=== PATIENT | female | born 1975 | race Caucasian/White ===

== ENCOUNTER → 2020-09-27 11:27 | Outpatient (BNVA) | payer OTHER, SELFPAY | PROVIDERS: Family Provider Family Medicine; Visit Provider Nurse Practitioner Family | DX: Z20.822 Contact with and (suspected) exposure to COVID-19 (principal); U07.1 COVID-19 | CPT/HCPCS: 87635 ==

== ENCOUNTER 2021-11-10 16:58 | Observation (INO) | payer OTHER, SELFPAY ==
[2021-11-10] VITALS (7 sets, daily range): BP systolic 107–131; BP diastolic 58–75; PULSE 107–126; RESP 14–22; TEMP 37.1–39.1; O2SAT 98–100; BMI 23.5
[2021-11-10 18:40] LABS: Basophils # 0.1 10^3/uL (0.0-0.1); Basophils % 0.3 %; Eosinophils % 0.1 %; Hematocrit 37.4 % (37.0-47.0); Hemoglobin 12.6 g/dL (11.5-15.3); Lymphocytes # 0.9 10^3/uL (0.8-4.8); Lymphocytes % 6.4 %; Mean Corpuscular HGB Conc 33.7 g/dL (30.0-36.0); Mean Corpuscular Hemoglobin 28.3 pg (28.0-34.0); Mean Corpuscular Volume 83.9 fl (81-99); Mean Platelet Volume 10.1 fL (7.4-10.4); Monocytes # 0.6 10^3/uL (0.2-0.9); Monocytes % 4.1 %; Neutrophils # 12.98 10^3/uL (1.8-7.7); Neutrophils % 88.8 %; Nucleated Red Blood Cells % 0 %; Platelet Count 273 10^3/cmm (130-400); Red Blood Count 4.46 10^6/uL (4.1-5.3); Red Cell Distribution Width 13.2 % (12.1-15.1); White Blood Count 14.6 10^3/uL (4.0-10.0)
[2021-11-10] MEDS: sodium chloride 0.9% 1,000 ML 999 ML IV (18:59)
[2021-11-10] MEDS: ondansetron 2 mg/ML SDV 2 mL 4 MG IVP (19:00)
[2021-11-10] MEDS: morphine 4 mg/mL SDV 1 mL IVP (19:00)
[2021-11-10 19:10] LABS: Alanine Aminotransferase 44 U/L (0-33); Alkaline Phosphatase 89 IU/L (35-105); Anion Gap 18.6 (5-19); Aspartate Amino Transferase 30 U/L (0-32); Blood Urea Nitrogen 11 mg/dL (6-20); Calcium 9.8 mg/dL (8.5-10.5); Carbon Dioxide 24 mmol/L (22-29); Chloride 98 mmol/L (98-107); Globulin 2.8 g/dL (1.3-4.6); Glomerular Filtration Rate 108.6 mL/min (90-130); Glucose 118 mg/dL (65-115); Lipase 13 U/L (13-60); Osmolality Calculated 284 mOsm/kg (285-295); Potassium 3.6 mmol/L (3.5-5.1); Sodium 137 mmol/L (136-145); Total Bilirubin 0.5 mg/dL (0.15-1.2); Total Protein 7.8 g/dL (6.6-8.7)
[2021-11-10 19:23] LABS: HCG, Serum Qual Negative (Negative)
--- NOTE | 2021-11-10 19:46 | CTR_ITS ---
PROCEDURE INFORMATION: Exam: CT Abdomen And Pelvis Without Contrast Exam date and time: 11/10/2021 8:57 PM Age: 46 years old Clinical indication: Abdominal pain; Generalized; Prior surgery; Surgery date: 6+ months; Surgery type: Olga; Additional info: Abd pain, fever TECHNIQUE: Imaging protocol: Computed tomography of the abdomen and pelvis without contrast. Radiation optimization: All CT scans at this facility use at least one of these dose optimization techniques: automated exposure control; mA and/or kV adjustment per patient size (includes targeted exams where dose is matched to clinical indication); or iterative reconstruction. COMPARISON: CT abdomen pelvis w con* [id number] 02/26/2017 10:01 AM RADIATION DOSE METRICS: Total DLP (mGy-cm): 906.46 FINDINGS: Lungs: The lung bases are clear. No effusion Liver: Normal. No mass. Gallbladder and bile ducts: There has been a cholecystectomy. Pancreas: Normal. No ductal dilation. Spleen: Normal. No splenomegaly. Adrenal glands: Normal. No mass. Kidneys and ureters: Normal. No hydronephrosis. Stomach and bowel: Mild amount of formed stool in the colon. Appendix: The appendix is mildly enlarged, measuring 13. mm , with periappendiceal fat stranding and an appendicolith. No fluid collection.. Intraperitoneal space: Tiny amount of free fluid in the pelvis, normal for age. Vasculature: Unremarkable. No abdominal aortic aneurysm. Lymph nodes: Unremarkable. No enlarged lymph nodes. Urinary bladder: Unremarkable as visualized. Reproductive: Unremarkable as visualized. Bones/joints: Unremarkable. No acute fracture. Soft tissues: Unremarkable. CT/CT abdomen pelvis con [id number] IMPRESSION: 1. Mild constipation. 2. Acute appendicitis with appendicolith.
--- NOTE | 2021-11-10 19:51 | ED_ITS ---
HPI - Abdominal Pain General: Chief Complaint: Abdominal Pain Stated Complaint: Abd Pain Time Seen by Provider: 11/10/21 19:51 History of Present Illness: 46-year-old female comes in today with body aches, chills, decreased oral intake since Wednesday. Patient reports abdominal pain. Patient appears in moderate pain at rest. Patient appears unwell but not toxic. Patient has had her gallbladder removed but no other abdominal surgeries. Patient takes some nortriptyline and omeprazole. Patient was treated 1 year ago for a tickborne illness. Denies any recent tick bites or exposure to COVID-19. Associated Symptoms: Reports chills and nausea; Denies constipation, diarrhea and vomiting Review of Systems General: Reports: 10 or more systems reviewed and unremarkable except in HPI and below Const: Reports: chills and body aches Eyes: Denies: change in vision ENMT: Denies: throat pain Card: Denies: chest pain Resp: Denies: dyspnea GI: Reports: abdominal pain and nausea; Denies: vomiting, diarrhea or constipation : Reports: difficulty voiding Musc: Reports: other (Muscle pain) Skin/Breast: Denies: rash PFSH ED PFSH: Social History (Updated 10/13/20 @ 11:43 by Joycelyn Martínez LPN) Smoking and tobacco status: never smoked Physical Exam Const: COMMON NORMALS: alert HENMT: COMMON NORMALS: normocephalic HEAD & SCALP: normocephalic Neck/C-Spine: GENERAL: Yes normal visual inspection Lymph: LYMPHATIC: no lymphadenopathy noted Chest: COMMONS NORMALS: normal inspection of the chest and normal palpation of the breasts BREAST/AXILLA PALPATION: Yes normal palpation of the breasts Resp: COMMON NORMALS: normal respiratory effort and clear to auscultation bilaterally AUSCULTATION: clear to auscultation bilaterally Cardio: COMMON NORMALS: regular rhythm RATE: tachycardic RHYTHM: regular rhythm GI: AUSCULTATION: Yes Hypoactive bowel sounds present PALPATION: Yes Firmness to palpation present (GI) and Yes Tenderness to palpation present (GI) (Generalized) : COMMON NORMALS: Yes no CVA tenderness BLADDER/KIDNEY EXAM: Yes no CVA tenderness Back/Pelvis: COMMON NORMALS: no CVA tenderness Extremity: COMMON NORMALS: normal to inspection Neuro: SENSORIUM/ORIENTATION: Yes alert Skin: COMMON NORMALS: no rashes or lesions noted GENERAL SKIN EXAM: no rashes or lesions noted Course ED course: 2229. CT scan ruled acute appendicitis with an appendicolith. Reviewed exam with Dr. Mckeon who recommended we talk to the general surgeon Dr. Wakefield, surgeon. Dr. Wakefield agreed to admit patient for surgery in the morning for an acute appendicitis. Vital Signs: Vital signs: Vital Signs Temperature 98.8 F 11/10/21 22:00 Pulse Rate 114 H 11/10/21 21:30 Respiratory Rate 21 H 11/10/21 21:30 Blood Pressure 107/64 11/10/21 22:00 Pulse Oximetry 99 11/10/21 22:00 MDM - Abdominal Pain Medical Decision Making 46-year-old female comes in today with complaints of right lower quadrant abdominal pain, poor oral intake, and fever on and off since Wednesday morning. Exam notes umbilical tenderness with right lower quadrant rebound pain. Positive psoas sign. Vital signs note a elevated pulse of 126 and a temperature of 102. Differential diagnosis includes not limited to appendicitis, bowel obstruction, UTI, viral syndrome. CBC had a white count of 14,000, CMP was unremarkable except for some mild elevation in ALT at 44. Urinalysis was unremarkable. CT of the abdomen pelvis noted an acute appendicitis with an a ppendicolith. I reviewed this with Dr. Mckeon who recommended general surgery consult. I talked with Dr. Wakefield, general surgeon who agreed to plan for admission and appendectomy in the morning. Patient agreed with plan of care. Lab Data : 11/10/21 18:27 11/10/21 18:27 Labs/Radiology: Radiology Impressions Abdomen/Pelvis CT 11/10/21 19:46 IMPRESSION: 1. Mild constipation. 2. Acute appendicitis with appendicolith. ADDENDUM: 11/10/218 THIS REPORT CONTAINS FINDINGS THAT MAY BE CRITICAL TO PATIENT CARE. The findings were verbally communicated by me to HOLLAND MORENO via telephone conference at 10:26 PM CDT on 11/10/2021. The findings were acknowledged and understood. Laboratory Results WBC 14.6 10^3/uL (4.0-10.0) H 11/10/21 18:27 RBC 4.46 10^6/uL (4.1-5.3) 11/10/21 18:27 Hgb 12.6 g/dL (11.5-15.3) 11/10/21 18: Hct 37.4 % (37.0-47.0) 11/10/21: MCV 83.9 fl (81-99) 11/10/21: MCH 28.3 pg (28.0-34.0) 11/10/21: MCHC 33.7 g/dL (30.0-36.0) 11/10/21 RDW 13.2 % (12.1-15.1) 11/10/21 Plt Count 273 10^3/cmm (130-400) 11/10/21 MPV 10.1 fL (7.4-10.4) 11/10/21 Neut % (Auto) 88.8 % 11/10/21 Lymph % (Auto) 6.4 % 11/10/21: [place] % (Auto) 4.1 % 11/10/21: Eos % (Auto) 0.1 % 11/10/21 Baso % (Auto) 0.3 % 11/10/21 Neut # (Auto) 12.98 10^3/uL (1.8-7.7) H 11/10/21 Lymph # (Auto) 0.9 10^3/uL (0.8-4.8) 11/10/21 [place] # (Auto) 0.6 10^3/uL (0.2-0.9) 11/10/21 Eos # (Auto) 0.0 10^3/uL (0.0-0.8) 11/10/21 Baso # (Auto) 0.1 10^3/uL (0.0-0.1) 11/10/21 Nucleated RBC % (auto) 0 % 11/10/21 Nucleated RBCs # 0.0 /100WBC 11/10/21 18: Sodium 137 mmol/L (136-145) 11/10/21: Potassium 3.6 mmol/L (3.5-5.1) 11/10/21: Chloride 98 mmol/L (98-107) 07/11/22 18:27 Carbon Dioxide 24 mmol/L (22-29) 11/10/21 18:27 Anion Gap 18.6 (5-19) 11/10/21 18: BUN 11 mg/dL (6-20) 11/10/21 18: Creatinine 0.6 mg/dL (0.5-0.9) 11/10/21 18:27 GFR Calculation 108.6 mL/min (90-130) 11/10/21 18: Glucose 118 mg/dL (65-115) H 11/10/21 18:27 Calculated Osmolality 284 mOsm/kg (285-295) L 11/10/21 18: Lactic Acid 1.0 mmol/L (0.5-2.2) 11/10/21 18: Calcium 9.8 mg/dL (8.5-10.5) 11/10/21 18: Total Bilirubin 0.5 mg/dL (0.15-1.2) 11/10/21 18: AST 30 U/L (0-32) 11/10/21 18: ALT 44 U/L (0-33) H 11/10/21 18:27 Alkaline Phosphatase 89 IU/L (35-105) 11/10/21 18: Total Protein 7.8 g/dL (6.6-8.7) 11/10/21 18: Albumin 5.0 g/dL (3.5-5.2) 11/10/21 18: Globulin 2.8 g/dL (1.3-4.6) 11/10/21 18: Lipase 13 U/L (13-60) 11/10/21 18:27 HCG, Qual Negative (Negative) 11/10/21 18:27 Urine Color Yellow (Yellow) 11/10/21 21:50 Urine Appearance Clear (CLEAR) 11/10/21 21:50 Urine pH 5 (5-7) 11/10/21 21:50 Ur Specific [place] 1.015 (1.005-1.030) 11/10/21 21:50 Urine Protein Trace (Negative) 11/10/21 21:50 Urine Glucose (UA) Norm (Normal) 11/10/21 21:50 Urine Ketones 2+ (Negative) H 11/10/21 21:50 Urine Blood Neg (Negative) 11/10/21 21:50 Urine Nitrate Negative (Negative) 11/10/21 21:50 Urine Bilirubin 1+ (Negative) H 11/10/21 21:50 Urine Urobilinogen 1 mg/dL (Negative) H 11/10/21 21:50 Ur Leukocyte Esterase Negative (Negative) 11/10/21 21:50 Urine RBC 5-10 /hpf (0-2) H 11/10/21 21:50 Urine WBC 5-10 /hpf (0-5) H 11/10/21 21:50 Ur Squamous Epith Cells 0-4 /hpf (0-5) H 11/10/21 21:50 Amorphous Sediment Not Reportable 11/10/21 21:50 Urine Bacteria 2+ /hpf (NONE) H 11/10/21 21:50 Urine Mucus 1+ /hpf 11/10/21 21:50 Discharge Plan Discharge Condition: Stable Prescriptions: No Action omeprazole 20 mg tablet,delayed release (DR/EC) 20 mg PO DAILY 0RF nortriptyline 50 mg capsule 50 mg PO BEDTIME 0RF acetaminophen [Tylenol] 325 mg tablet 325 mg PO QID PRN (Reason: Pain) 0RF sumatriptan succinate 50 mg tablet 50 mg PO DAILY PRN (Reason: Migraine Headache) 0RF Advil 200 mg Tablet 200 mg PO Q6H PRN (Reason: Pain) 0RF magnesium 30 mg Tablet 30 mg PO DAILY 0RF buspirone 15 mg tablet 7.5 mg PO BID 0RF bupropion HCl 150 mg tablet extended release 24 hr 150 mg PO DAILY 0RF Multi For Her 18 mg iron-600 mcg-40 mcg Capsule 1 tab-cap PO DAILY 0RF Referrals: Olivia Benitez MD [Primary Care Provider] - Coding Level of Care Code ED Certified [place] Administrator for Chg Fwd Exam Comprehensive
[2021-11-10] MEDS: lactated ringers 1,000 ML 999 ML IV (20:13)
[2021-11-10] MEDS: ketorolac 30 mg/mL INJ 15 MG IVP (20:13)
[2021-11-10] MEDS: acetaminophen 1,000 MG/100 ML PIGGYBACK 400 MG IV (21:35)
[2021-11-10 22:13] LABS: Add Urine Culture? Yes; Add Urine Microscopic? YES; Bacteria Urine 2+ /hpf; Bilirubin Urine 1+ (Negative); Blood Urine Neg (Negative); Glucose Urine UA Norm (Normal); Ketones Urine 2+ (Negative); Leukocyte Esterase Urine Negative (Negative); Mucus Urine 1+ /hpf; Nitrate Urine Negative (Negative); Protein Urine Trace (Negative); Specific Gravity, Urine 1.015 (1.005-1.030); Squamous Epithelial Cell Urine 0-4 /hpf (0-5); Urine Appearance Clear (CLEAR); Urine Color Yellow (Yellow); Urobilinogen Urine 1 mg/dL (Negative); pH Urine 5 (5-7)
[2021-11-10] MEDS: lactated ringers 1,000 ML 125 ML IV (23:11)
[2021-11-10] MEDS: piperacillin-tazobactam 3.375 GM in sodium chloride 0.9% (plus) 50 ML IV (23:11)
[2021-11-11] VITALS (14 sets, daily range): BP systolic 95–124; BP diastolic 61–73; PULSE 92–114; RESP 16–20; TEMP 36.8–38.4; O2SAT 93–99
[2021-11-11] MEDS: ondansetron 2 mg/ML SDV 2 mL 4 MG IVP (00:59)
[2021-11-11] MEDS: morphine 4 mg/mL SDV 1 mL 2 MG IVP ×2 (00:59→23:52)
[2021-11-11] MEDS: sodium chloride 0.9% 1,000 ML 125 ML IV ×2 (00:59→17:43)
--- NOTE | 2021-11-11 05:51 | PM.HP ---
Providers/Chief Complaint Admitting Physician: Francisco Javier Davis MD Primary Care Provider: Olivia Wilson MD Chief Complaint: Abd Pain History of Present Illness Ms. Letty Tan is a pleasant 46 year old female presented to the emergency department with generalized aches chills and decreased oral intake since last Wednesday. Patient complaining of abdominal pain. Work-up in the ER showed WBC count of 14.7Hemoglobin 12.6, platelet counts 273, serum creatinine 0.6. CT of the abdomen and pelvis; 1. Mild constipation. 2. Acute appendicitis with appendicolith. General surgery was consulted for further management Patient started her pain last Wednesday all over her belly and started shifting towards the right lower quadrant. Associated with nausea and chills. As her symptoms got worse presented to the ER for further evaluation. Patient is aware that she is chronically constipated. Review of Systems General: Reports: 10 or more systems reviewed and unremarkable except in HPI and below Medications/Allergies Home Medications Medication Instructions Recorded Confirmed Last Taken Type acetaminophen 325 mg tablet 325 mg PO QID PRN 09/27/20 11/10/21 11/10/21 History (Tylenol) nortriptyline 50 mg capsule 50 mg PO BEDTIME 09/27/20 11/10/21 11/10/21 History omeprazole 20 mg tablet,delayed 20 mg PO DAILY 09/27/20 11/10/21 11/10/21 History release bupropion HCl 150 mg 24 hr tablet, 150 mg PO DAILY 11/10/21 11/10/21 11/10/21 History extended release buspirone 15 mg tablet 7.5 mg PO BID 11/10/21 11/10/21 11/10/21 History ibuprofen 200 mg tablet (Advil) 200 mg PO Q6H PRN 11/10/21 11/10/21 Unknown History magnesium 30 mg tablet 30 mg PO DAILY 11/10/21 11/10/21 11/10/21 History [id number] fumarate 18 1 tab-cap PO DAILY 11/10/21 11/10/21 11/10/21 History mg-FA 600 mcg-vit K 40 mcg capsule (Multi For Her) sumatriptan succinate 50 mg tablet 50 mg PO DAILY PRN 11/10/21 11/10/21 Unknown History Allergies Allergy/AdvReac Type Severity Reaction Status Date / Time zolpidem [From Ramona] Allergy ADR-Migrain Verified 11/11/21 05:54 e PFSH Acute PFSH: Social History Smoking and tobacco status: never smoked Vitals/I&O/Wt Last Vital Signs Temp 98.3 F 11/11/21 02:08 Pulse 92 11/11/21 02:08 Resp 18 11/11/21 02:08 BP 95/61 11/11/21 02:08 Pulse Ox 96 11/11/21 02:08 11/10/21 11/10/21 11/11/21 14:59 22:59 06:59 Intake Total 1100 / 1100 1256.25 / 2356.25 Balance 1100 / 1100 1256.25 / 2356.25 Weight last 48 hrs Weight 137 lb Weight 137 lb Physical Exam Const: COMMON NORMALS: no acute distress and patient oriented x3 GENERAL APPEARANCE: cooperative ORIENTATION/CONSCIOUSNESS: Yes awake, Yes oriented to person, Yes oriented to place and Yes oriented to time HENMT: COMMON NORMALS: normocephalic HEAD & SCALP: normocephalic Eye: COMMON NORMALS: Equal, round and reactive pupils present and no scleral icterus PUPIL: Yes Equal, round and reactive pupils present Lymph: LYMPHATIC: no lymphadenopathy noted Chest: COMMONS NORMALS: normal inspection of the chest Resp: COMMON NORMALS: normal respiratory effort and clear to auscultation bilaterally AUSCULTATION: clear to auscultation bilaterally Cardio: COMMON NORMALS: S1 normal heart sound present and S2 normal heart sound present; negative for No murmurs present (Cardio) HEART SOUNDS: S1 normal heart sound present and S2 normal heart sound present GI: COMMON NORMALS: Soft to palpation; negative for No hepatosplenomegaly present INSPECTION: Yes normal to inspection PALPATION: Yes Soft to palpation, No Firmness to palpation present (GI), Yes Tenderness to palpation present (GI) Details: LLQ, RLQ and other (Suprapubic tenderness ), No Guarding due to palpation present (GI), No Rigid due to palpation and No No hepatosplenomegaly present GI image (female): 1. Maximal tenderness and localized guarding localized at McBurney's point. Physical exam was in the presence of nursing staff Khadijah Neuro: COMMON NORMALS: patient oriented x3 SENSORIUM/ORIENTATION: Yes oriented to person, Yes oriented to place and Yes oriented to time Psych: COMMON NORMALS: mental status grossly normal Skin: COMMON NORMALS: no rashes or lesions noted GENERAL SKIN EXAM: no rashes or lesions noted Data : 11/10/21 18:27 11/10/21 18:27 Micro: Microbiology 11/10/21 18:27 Blood Culture - Preliminary Blood SPECIMEN COLLECTED 11/10/21 18:27 Blood Culture - Preliminary Blood SPECIMEN COLLECTED A&P Assessment and plan (1) Acute appendicitis: After thorough history physical examination and reviewing the chart and images with my personal interpretion, I counseled the patient for laparoscopic appendectomy possible open.Indications, risks, benefits and alternatives were all discussed with the patient and did agree to proceed. Rationale was carefully and clearly discussed with the patient.Appropriate informed consent have been reviewed and signed Status: Acute Attestations Medical Necessity Statement*: Observation status for perioperative care Coding Level of Care Code Acute Green Ware Caster for [facility] Fwd Exam Comprehensive Diagnoses Acute appendicitis K35.80
[2021-11-11] MEDS: piperacillin-tazobactam 3.375 GM in sodium chloride 0.9% (plus) 50 ML IV ×3 (06:09→23:17)
[2021-11-11] MEDS: acetaminophen 325 mg Tablet 650 MG PO (06:28)
--- NOTE | 2021-11-11 08:30 | P.ANESASSM_ITS ---
Pre-Anesthetic Assessment Height/Weight: Height 1.63 m Weight 62.142 kg Temp Pulse Resp BP Pulse Ox 101.2 F H 114 H 20 H 111/70 98 11/11/21 07:52 11/11/21 07:52 11/11/21 07:52 11/11/21 07:52 11/11/21 07:52 Preop Diagnosis: Acute appendicitis Operation Date: 11/11/21 09:15 Proposed Procedures p Laparoscopic Appendectomy(Not Applicable) - Francisco Javier Davis MD Familial anesthetic complications: none Was Beta Chai taken within 24 hours: N/A Was Clonidine taken within 24 hours: N/A Last intake: Intake Last Liquid Date 11/11/21 Last Liquid Time 00:00 Last Solid Date 11/11/21 Last Solid Time 00:00 Social No alcohol and No tobacco Exam alert, oriented x 3, clear to auscultation bilaterally and regular rate & rhythm Airway Submandibular: within normal limits Cervical ROM: within normal limits Mallampati: Class II Dentition: full GI Gastroesophageal Reflux Disease Neuropsych Anxiety and Depression Anesthetic Plan ASA status: 2 Anesthesia: General Medications/Allergies Home Medications Medication Instructions Recorded Confirmed Last Taken Type acetaminophen 325 mg tablet 325 mg PO QID PRN 09/27/20 11/10/21 11/10/21 History (Tylenol) nortriptyline 50 mg capsule 50 mg PO BEDTIME 09/27/20 11/10/21 11/10/21 History omeprazole 20 mg tablet,delayed 20 mg PO DAILY 09/27/20 11/10/21 11/10/21 History release bupropion HCl 150 mg 24 hr tablet, 150 mg PO DAILY 11/10/21 11/10/21 11/10/21 History extended release buspirone 15 mg tablet 7.5 mg PO BID 11/10/21 11/10/21 11/10/21 History ibuprofen 200 mg tablet (Advil) 200 mg PO Q6H PRN 11/10/21 11/10/21 Unknown History magnesium 30 mg tablet 30 mg PO DAILY 11/10/21 11/10/21 11/10/21 History [id number]-doq-uxlj fumarate 18 1 tab-cap PO DAILY 11/10/21 11/10/21 11/10/21 History mg-FA 600 mcg-vit K 40 mcg capsule (Multi For Her) sumatriptan succinate 50 mg tablet 50 mg PO DAILY PRN 11/10/21 11/10/21 Unknown History Allergies Allergy/AdvReac Type Severity Reaction Status Date / Time zolpidem [From Ambien] Allergy ADR-Migrain Verified 11/11/21 05:54 e Current Medications Generic Name Dose Route Start Last Admin Trade Name Freq PRN Reason Stop Dose Admin Piperacillin Sod/Tazobactam 50 mls @ 12.5 mls/hr 11/10/21 23:00 11/11/21 06:09 Sod 3.375 gm/ Sodium Chloride IV 12.5 mls/hr Q8H JEAN Administration Protocol Sodium Chloride 1,000 mls @ 125 mls/hr 11/11/21 00:15 11/11/21 00:59 Sodium Chloride 0.9% IV 125 mls/hr .Q8H JEAN Administration Morphine Sulfate 2 mg 11/11/21 00:09 11/11/21 00:59 Morphine 4 Mg/Ml Sdv 1 Ml IVP 2 mg Q1H PRN Administration SEVERE PAIN Ondansetron HCl 4 mg 11/11/21 00:09 11/11/21 00:59 Ondansetron 2 Mg/Ml Sdv 2 Ml IVP 4 mg Q6H PRN Administration NAUSEA AND VOMITING PFSH Anesthesia Social History Smoking and tobacco status: never smoked Data Anesthesia : 11/10/21 18:27 11/10/21 18:27 Short CBC 11/10/21 Range/Units 18:27 WBC 14.6 H (4.0-10.0) 10^3/uL Hgb 12.6 (11.5-15.3) g/dL Hct 37.4 (37.0-47.0) % MCV 83.9 (81-99) fl Plt Count 273 (130-400) 10^3/cmm Neut % (Auto) 88.8 % Neut # (Auto) 12.98 H (1.8-7.7) 10^3/uL BMP 11/10/21 18:27 Sodium 137 Potassium 3.6 Chloride 98 Carbon Dioxide 24 BUN 11 Creatinine 0.6 Glucose 118 H Calcium 9.8 Liver Function 11/10/21 Range/Units 18:27 Total Bilirubin 0.5 (0.15-1.2) mg/dL AST 30 (0-32) U/L ALT 44 H (0-33) U/L Alkaline Phosphatase 89 (35-105) IU/L Albumin 5.0 (3.5-5.2) g/dL Urine 11/10/21 Range/Units 21:50 Urine Color Yellow (Yellow) Urine Appearance Clear (CLEAR) Urine pH 5 (5-7) Ur Specific [place] 1.015 (1.005-1.030) Urine Protein Trace (Negative) Urine Glucose (UA) Norm (Normal) Urine Ketones 2+ H (Negative) Urine Nitrate Negative (Negative) Urine Bilirubin 1+ H (Negative) Ur Leukocyte Esterase Negative (Negative) Urine RBC 5-10 H (0-2) /hpf Urine WBC 5-10 H (0-5) /hpf Microbiology 11/10/21 18:27 Blood Culture - Preliminary Blood SPECIMEN COLLECTED 11/10/21 18:27 Blood Culture - Preliminary Blood SPECIMEN COLLECTED Cardiac Studies: No Data to Display
[2021-11-11] MEDS: lidocaine 2% INJ 20 mL INJECTION (08:57)
--- NOTE | 2021-11-11 09:40 | PM.OP ---
Operative Report Date of procedure: November 11, 2021 Pre-op diagnosis: Preop Diagnosis Acute appendicitis Post-op diagnosis: Acute appendicitis with perforation and omental encasing Procedure done: Laparoscopic appendectomy and peritoneal lavage Specimens removed/disposition: Appendix Surgeon: Francisco Javier Davis MD New Car Make Ready Mechanic: Surgical domenic Martin Circulating nurse Lauren Anesthesia: General (FAHEEM Sandoval) Estimated blood loss (mL): 20 IV fluids (mL): 900 Procedure: Patient after being identified in the holding area and asked to void urine, and informed consent per chart ,patient was then taken back to the OR placed in supine position got intubated by anesthesia left arm was tucked tucked ,Timeout was done verifying the patient's name/date of /planned procedure and destination after the procedure, all were in agreement., preoperative antibiotics administered per protocol. prep and drape of the abdomen was done under the usual sterile technique. Started by longitudinal skin incision supraumbilical using a Harrell trocar technique safe entry to the abdominal cavity was achieved verified by using 10 mm zero degree laparoscopy, switched to a 30? scope under direct visualization a suprapubic 5 mm trocar was inserted followed by another 5 mm trocar inserted in the left lower quadrant, I was able to position the patient in an T Hannon and left side down. Noticed omental encasing of the right lower quadrant for an inflamed appendix, after adhesions were taken down by blunt dissection revealing a perforated appendicitis towards the portion of the appendiceal body, with fibrinous exudates. Continued dissection of the prececal acutely inflamed appendix there was some adhesions towards the lateral pelvic wall that was taken down by sharp and blunt dissection, attention was deviated to the healthy base of the appendix where I had to switch the camera to 5 mm 30? scope got introduced through the left lower quadrant and through the Harrell trocar under direct visualization a GI stapler 45 mm blue load was applied at the healthy part of the base of the appendix, and an Endoloop PDS was applied onto the mesoappendix for control , the appendix was then retrieved in an Endo Catch bag, final survey was done of the abdomen and pelvis , 2 L of warm saline used for irrigation followed by suction was obtained, were mercury fluid like in the pelvis due to reaction from the inflamed appendix. Multiple 5 mm clips were applied onto the mesoappendix as well as the appendectomy staple line and a right lateral pelvic wall for minimal oozing. Final look laparoscopy was done showing no other abnormalities or injuries, all trocars were taken out under direct visualization after the supraumblical trocar site was closed by #1. Sutures under direct vision using fascial closure device ,followed by skin closure using skin sky of all trocar site incisions. infiltration of local lidocaine 2% was done to all incision sites.Dry dressing was applied.Count was completed at the end of the procedure for [place] , sponges and instruments Patient tolerated the procedure well and was transferred to the recovery area after extubation. I was present for the whole entire procedure
--- NOTE | 2021-11-11 10:00 | SUR.PHASEI ---
0947 PT AWAKES TO VOICE, VERBALLY DENIES PAON AND NAUSEA, MONITOR ST WITH NO ECTOPY NOTED, IV TO RT AC 20 WITH NS 200 AT KVO RATE PER GRAVITY. ABDOMEN SOFT WITH 3 SITES WITH BANDAIDS D/I BILAT SCDS ON AND WORKING. 0955 PT SATS 93% PT PLACED ON 3LNC TO KEEP SATS OVER 94% PT AWAKE ALERT TAKING OCC ICE CHIPS COUGHS TO COMMAND. MONITOR UNCHANGED.
--- NOTE | 2021-11-11 10:28 | SUR.PHASEI ---
ABOMEN REMAINS SOFT , BANDAIDS D/I FAMILY UP DATED AND WILL WAIT IN PT ROOM, PT REPORT CALLED AND PT TO FLOOR PER BED WITH RN.
[2021-11-11] MEDS: HYDROcodone-acetaminophen 5-325 mg Tablet 1 TAB PO ×2 (15:04→21:21)
--- NOTE | 2021-11-11 15:38 | ANE.PACU2 ---
Inpatient post-anesthesia follow up: Airway intact: Yes Vital signs: Temperature 98.8 F Pulse Rate 101 Respiratory Rate 19 Blood Pressure 113/67 Pulse Oximetry 97 Oxygen Delivery Me thod Nasal Cannula Oxygen Flow Rate 3 Fraction of Inspir ed Oxygen Hydration adequate: Yes Nausea and vomiting: No Pain level: 2 Mental status: Baseline
[2021-11-11] MEDS: cetylpyridinium Lozenge 1 EACH MUCOUS MEM (22:43)
[2021-11-11] MEDS: guaiFENesin 100 mg/5 mL UDC 10 mL 200 MG PO (22:43)
[2021-11-12] VITALS: BP 107/70; PULSE 97; RESP 18; TEMP 36.7; O2SAT 97
[2021-11-12] MEDS: sodium chloride 0.9% 1,000 ML 125 ML IV ×3 (03:20→20:10)
[2021-11-12 04:00] VITALS: BP 100/62; PULSE 96; RESP 17; TEMP 36.9; O2SAT 96
[2021-11-12] MEDS: piperacillin-tazobactam 3.375 GM in sodium chloride 0.9% (plus) 50 ML IV ×3 (06:41→23:53)
[2021-11-12 08:02] LABS: Basophils % 0.3 %; Eosinophils % 0.4 %; Hematocrit 26.5 % (37.0-47.0); Hemoglobin 8.7 g/dL (11.5-15.3); Lymphocytes # 1.5 10^3/uL (0.8-4.8); Lymphocytes % 14.6 %; Mean Corpuscular HGB Conc 32.8 g/dL (30.0-36.0); Mean Corpuscular Volume 85.2 fl (81-99); Monocytes # 0.7 10^3/uL (0.2-0.9); Monocytes % 6.3 %; Neutrophils # 8.26 10^3/uL (1.8-7.7); Nucleated Red Blood Cells % 0 %; Platelet Count 183 10^3/cmm (130-400); Red Blood Count 3.11 10^6/uL (4.1-5.3); Red Cell Distribution Width 13.6 % (12.1-15.1); White Blood Count 10.6 10^3/uL (4.0-10.0)
[2021-11-12] MEDS: HYDROcodone-acetaminophen 5-325 mg Tablet 1 TAB PO ×3 (08:03→16:48)
[2021-11-12 08:34] LABS: Anion Gap 11.8 (5-19); Blood Urea Nitrogen 6 mg/dL (6-20); Calcium 8.6 mg/dL (8.5-10.5); Carbon Dioxide 24 mmol/L (22-29); Chloride 106 mmol/L (98-107); Glucose 93 mg/dL (65-115); Osmolality Calculated 283 mOsm/kg (285-295); Potassium 3.8 mmol/L (3.5-5.1); Sodium 138 mmol/L (136-145)
[2021-11-12] MEDS: psyllium powder Pkt 1 PACKET PO ×2 (08:41→18:22)
--- NOTE | 2021-11-12 11:19 | PM.PN ---
Subjective Subjective: Overall patient is feeling better starts passing gas. Adequate urine output Medications: Reviewed: Yes Vitals/I&O/Wt Last Vital Signs Temp 98.5 F 11/12/21 04:00 Pulse 96 11/12/21 04:00 Resp 17 11/12/21 04:00 BP 100/62 11/12/21 04:00 Pulse Ox 96 11/12/21 04:00 11/11/21 11/12/21 11/12/21 22:59 06:59 14:59 Intake Total 170 / 1270 2170 / 3440 1159.583 / 1159.583 Output Total 800 / 815 1950 / 2765 Balance -630 / 455 220 / 675 1159.583 / 1159.583 Weight last 48 hrs Weight 145 lb 4.8 oz Weight 137 lb Weight 137 lb Physical Exam Narrative: Patient is conscious alert oriented X3 No apparent distress BMI 25 Head and neck examination PERRLA no masses no cervical lymphadenopathy no jaundice Abdomen nontender Except at the incision sites nondistended soft no organomegaly guarding or rigidity/no signs of peritonitis, dry dressing in place. Extremities no cyanosis no clubbing no edema Data : 11/12/21 07:45 11/12/21 07:45 Micro: Microbiology 11/10/21 18:27 Blood Culture - Preliminary Blood NEGATIVE TO DATE 11/10/21 18:27 Blood Culture - Preliminary Blood NEGATIVE TO DATE A&P Assessment and plan (1) Status post laparoscopic appendectomy: Assessment 46 years old female patient status post laparoscopic appendectomy for perforated appendicitis 11/11/2021 Plan Continue antimicrobial therapy Incentive spirometer Encourage ambulation Advance to full liquid diet Assurance and education All questions have been answered and all concerns have been addressed to patient's satisfaction. Status: Acute Attestations Medical Necessity Statement*: Observation status to continue parenteral antimicrobial therapy For perforated appendicitis Time Spent in Patient Care: 16 - 35 minutes Coding Level of Care Code Acute Winding Machine Operator for Cl Padilla Diagnoses Status post laparoscopic appendectomy Z90.49
[2021-11-12] MEDS: glycerin adult supp 1 EACH PR (12:11)
[2021-11-12 12:39] VITALS: O2SAT 99
[2021-11-12] MEDS: magnesium citrate Btl 296 mL 150 ML PO (18:22)
[2021-11-12] MEDS: pantoprazole DR 40 mg Tablet PO (18:22)
[2021-11-12] MEDS: acetaminophen 325 mg Tablet PO (19:12)
[2021-11-12 20:00] VITALS: BP 120/77; PULSE 105; RESP 18; TEMP 37; O2SAT 100
[2021-11-12] MEDS: ondansetron 2 mg/ML SDV 2 mL 4 MG IVP (20:08)
[2021-11-12] MEDS: cetylpyridinium Lozenge 1 EACH MUCOUS MEM (20:12)
[2021-11-12] MEDS: guaiFENesin 100 mg/5 mL UDC 10 mL 200 MG PO (20:12)
[2021-11-12 21:01] VITALS: PULSE 98; RESP 16; O2SAT 99
[2021-11-13] VITALS (7 sets, daily range): BP systolic 117–134; BP diastolic 66–81; PULSE 90–100; RESP 12–20; TEMP 36.7–36.9; O2SAT 94–100
[2021-11-13] MEDS: ondansetron 2 mg/ML SDV 2 mL 4 MG IVP ×2 (04:22→10:22)
[2021-11-13] MEDS: sodium chloride 0.9% 1,000 ML 125 ML IV (04:22)
[2021-11-13] MEDS: HYDROcodone-acetaminophen 5-325 mg Tablet 1 TAB PO (04:35)
[2021-11-13] MEDS: magnesium citrate Btl 296 mL 150 ML PO (07:15)
[2021-11-13] MEDS: piperacillin-tazobactam 3.375 GM in sodium chloride 0.9% (plus) 50 ML IV ×2 (09:03→16:05)
[2021-11-13] MEDS: acetaminophen 325 mg Tablet PO ×2 (09:05→16:02)
[2021-11-13] MEDS: pantoprazole DR 40 mg Tablet PO (09:05)
[2021-11-13] MEDS: psyllium powder Pkt 1 PACKET PO (09:10)
--- NOTE | 2021-11-13 13:42 | PM.SDS ---
Short Stay Summary Providers Date of Admit/Discharge: 11/13/21 Attending Provider: Francisco Javier Davis MD Primary Care Provider: Olivia Wilson MD Chief Complaint: Abd Pain HPI History of Present Illness Ms. Letty Tan is a pleasant 46 year old female presented to the emergency department with generalized aches chills and decreased oral intake since last Wednesday.? Patient complaining of abdominal pain. Work-up in the ER showed WBC count of 14.7Hemoglobin 12.6, platelet counts 273, serum creatinine 0.6. CT of the abdomen and pelvis; 1. Mild constipation. 2. Acute appendicitis with appendicolith. General surgery was consulted for further management Patient started her pain last Wednesday all over her belly and started shifting towards the right lower quadrant.? Associated with nausea and chills.? As her symptoms got worse presented to the ER for further evaluation.? Patient is aware that she is chronically constipated. Patient undergone uneventful laparoscopic appendectomy for perforated appendicitis Review of Systems General: Reports: 10 or more systems reviewed and unremarkable except in HPI and below Home Meds/Allergies Home Medications and Allergies Home Medications Medication Instructions Recorded Confirmed Type acetaminophen 325 mg tablet 325 mg PO QID PRN 09/27/20 11/10/21 History (Tylenol) nortriptyline 50 mg capsule 50 mg PO BEDTIME 09/27/20 11/10/21 History omeprazole 20 mg tablet,delayed 20 mg PO DAILY 09/27/20 11/10/21 History release bupropion HCl 150 mg 24 hr tablet, 150 mg PO DAILY 11/10/21 11/10/21 History extended release buspirone 15 mg tablet 7.5 mg PO BID 11/10/21 11/10/21 History ibuprofen 200 mg tablet (Advil) 200 mg PO Q6H PRN 11/10/21 11/10/21 History magnesium 30 mg tablet 30 mg PO DAILY 11/10/21 11/10/21 History [id number]-lag-hrhk fumarate 18 1 tab-cap PO DAILY 11/10/21 11/10/21 History mg-FA 600 mcg-vit K 40 mcg capsule (Multi For Her) sumatriptan succinate 50 mg tablet 50 mg PO DAILY PRN 11/10/21 11/10/21 History Allergies Allergy/AdvReac Type Severity Reaction Status Date / Time zolpidem [From Ambien] Allergy ADR-Migrain Verified 11/11/21 05:54 e PFSH Acute PFSH: Medical History Acute appendicitis Social History Smoking and tobacco status: never smoked Vitals/I&O/Wt Last Vital Signs Temp 98.2 F 11/13/21 11:40 Pulse 97 11/13/21 11:40 Resp 18 11/13/21 11:40 BP 124/79 11/13/21 11:40 Pulse Ox 98 11/13/21 11:40 11/12/21 11/13/21 11/13/21 22:59 06:59 14:59 Intake Total 1530 / 3289.583 2150 / 5439.583 50 / 50 Output Total 3300 / 3300 1500 / 4800 1000 / 1000 Balance -1770 / -10.417 650 / 639.583 -950 / -950 Weight last 48 hrs Weight 152 lb Weight 145 lb 4.8 oz Physical Exam Narrative: Patient is conscious alert oriented X3 No apparent distress BMI 25 Chest is clear bilateral Audible S1-S2 Head and neck examination PERRLA no masses no cervical lymphadenopathy no jaundice Abdomen nontender Except at the incision sites nondistended soft no organomegaly guarding or rigidity/no signs of peritonitis, skin sky in place Extremities no cyanosis no clubbing no edema Hospital Course Hospital Course Patient undergone uneventful laparoscopic appendectomy followed by a postoperative smooth course, continue to be having stable vital signs and adequate urine output, started passing gas and tolerated p.o. intake, stool softeners were given as patient does have chronic constipation, patient has been on antimicrobial therapy with the plan to continue oral antibiotics at home. Patient was discharged home once she met the appropriate and safe indications for discharge home. Discharge Summary Patient overall did well after surgery and she is well educated about avoiding constipation. Discharged home with the plan to follow-up with surgery office in 1 week SSS Data Data Completed and Pending: Completed Studies During Hospitalization Category Date Time Status CT abdomen pelvis wo con [id number] Urge nt Cat Scan 11/10/21 19:46 Completed Pathology: Surgic al [PTH] Routine Pth 11/11/21 09:38 Completed Pending at discharge Category Date Time Status ES surgery / GI i mages Routine Exams 11/11/21 07:40 Taken Blood Culture Sta t Lab 11/10/21 18:27 Results Procedures Performed: Operative Report Date of procedure: November 11, 2021 Pre-op diagnosis: Preop Diagnosis ? Acute appendicitis? Post-op diagnosis: Acute appendicitis with perforation and omental encasing Procedure done: Laparoscopic appendectomy and peritoneal lavage Specimens removed/disposition: Appendix Surgeon: Francisco Javier Davis MD Clinical Support Associate: Surgical domenic Martin Circulating nurse Lauren Anesthesia: General (FAHEEM Sandoval) Estimated blood loss (mL): 20 IV fluids (mL): 900 Procedure: Patient after being identified in the holding area and asked to void urine, and informed consent per chart ,patient was then taken back to the OR placed in supine position got intubated by anesthesia left arm was tucked tucked ,Timeout was done verifying the patient's name/date of /planned procedure? and destination after the procedure, all were in agreement., preoperative antibiotics administered per protocol. prep and drape of the abdomen was done under the usual sterile technique. Started by longitudinal skin incision supraumbilical using a Harrell trocar technique safe entry to the abdominal cavity was achieved verified by using 10 mm zero degree laparoscopy, switched to a 30? scope under direct visualization a? suprapubic 5 mm trocar was inserted followed by another? 5 mm trocar inserted in the left lower quadrant, I was able to position the patient in an T Hannon and left side down. Noticed omental encasing of the right lower quadrant for an inflamed appendix, after adhesions were taken down by blunt dissection revealing a perforated appendicitis towards the portion of the appendiceal body, with fibrinous exudates. Continued dissection of the prececal acutely inflamed appendix there was some adhesions towards the lateral pelvic wall that was taken down by sharp and blunt dissection, attention was deviated to the healthy base of the appendix where I had to switch the camera to 5 mm 30? scope got introduced through the left lower quadrant and through the Harrell trocar under direct visualization a GI stapler 45 mm blue load was applied at the healthy part of the base of the appendix, and an Endoloop PDS was applied onto the mesoappendix for control , the appendix was then retrieved in an Endo Catch bag, final survey was done of the abdomen and pelvis , 2 L of warm saline used for irrigation followed by suction was obtained, were mercury fluid like in the pelvis due to reaction from the inflamed appendix. Multiple 5 mm clips were applied onto the mesoappendix as well as the appendectomy staple line and a right lateral pelvic wall for minimal oozing. Final look laparoscopy was done showing no other abnormalities or injuries, all trocars were taken out under direct visualization after the supraumblical trocar site was closed by #1.? Sutures under direct vision using fascial closure device ,followed by skin closure using skin sky of all trocar site incisions.? infiltration of local lidocaine 2% was done to all incision sites.Dry dressing was applied.Count was completed at the end of the procedure for Lincoln , sponges and instruments Patient tolerated the procedure well and was transferred to the recovery area after extubation. I was present for the whole entire procedure Dictated By: Francisco Javier Davis MD Signed By: Francisco Javier Davis MD Signed Date/Time: 11/12/21 3104 Diagnoses at Discharge Discharge Diagnosis (1) Status post laparoscopic appendectomy: Details from hospital stay: Plan to DC home today Status: Acute Discharge Plan Discharge Patient Disposition: Home Condition: Stable Prescriptions: New hydrocodone-acetaminophen 5-325 mg tablet 1 tab PO Q6H PRN (Reason: pain) Qty: 7 0RF amoxicillin-pot clavulanate 875-125 mg tablet 1 tab PO Q12H Qty: 14 0RF Continued omeprazole 20 mg tablet,delayed release (DR/EC) 20 mg PO DAILY 0RF nortriptyline 50 mg capsule 50 mg PO BEDTIME 0RF acetaminophen [Tylenol] 325 mg tablet 325 mg PO QID PRN (Reason: Pain) 0RF sumatriptan succinate 50 mg tablet 50 mg PO DAILY PRN (Reason: Migraine Headache) 0RF magnesium 30 mg Tablet 30 mg PO DAILY 0RF buspirone 15 mg tablet 7.5 mg PO BID 0RF bupropion HCl 150 mg tablet extended release 24 hr 150 mg PO DAILY 0RF Multi For Her 18 mg iron-600 mcg-40 mcg Capsule 1 tab-cap PO DAILY 0RF Held Advil 200 mg Tablet 200 mg PO Q6H PRN (Reason: Pain) 0RF Hold Instructions: Resume on 11/20/21. Discharge Orders: Discharge Order (Routine); Ordered 11/13/21 Ordered By: Francisco Javier Davis Referrals: Olivia Benitez MD [Primary Care Provider] - Francisco Javier Davis MD [Physician] - (Return to surgery office in 1 w ) Discharge Diet: Advance as tolerated Discharge Activity: Limit activity as instructed Patient Instructions: Hydrocodone/Acetaminophen (By mouth), Amoxicillin (By mouth), Laparoscopic Appendectomy (GEN), Opioid Safety, Post Anesthesia Care Activity Restrictions/Additional Instructions: 1. Patient can shower after 48 hours from surgery 2. Remove secondary dressing can take down after 48 hours. 3. Up and walking as tolerated 4. Do lift more than 5 pounds first 2 weeks after surgery and not more than 25 pounds 6 to 8 weeks after surgery. 5. Do not operate heavy machinery or drive while using pain medications. 6.Contact the office or return to the ER for worsening nausea vomiting fevers or chills, or noticing any redness around incision sites or discharge. 7. Avoid constipation Attestations Medical Necessity Statement*: Observation for perioperative care Time Spent in Patient Care*: greater than 30 min Specific Discharge Activities: Specific discharge activities: educating patient and educating and/or supporting family/caregiver Status at Discharge: Cognitive status at discharge: cognitively intact, Behavioral status at discharge: cooperative, Functional status at discharge: independent ambulation Overall status at discharge: patient is progressing back to baseline Quality Metrics Clinical Quality Measures: [ No reported AMI, CVA or VTE this stay] Coding Level of Care Code Acute Automotive Parts Interpreter for Chg Fwd Diagnoses Status post laparoscopic appendectomy Z90.49
== END 2021-11-13 18:30 | disposition home or self-care (01) ==
LOC: ER 21:12 → MEDSURG 23:06
PROVIDERS: Admitting Provider Surgery; Emergency Provider Nurse Practitioner Family; PCP Internal Medicine Geriatric Medicine; Visit Provider Surgery
PROC: 0DTJ4ZZ Resection of Appendix, Percutaneous Endoscopic Approach (ICD-10-PCS; CPT 44970; principal; 2021-11-11 09:15)
DX: K35.33 Acute appendicitis with perforation, localized peritonitis, and gangrene, with abscess (principal); K21.9 Gastro-esophageal reflux disease without esophagitis; F41.9 Anxiety disorder, unspecified; F32.9 Major depressive disorder, single episode, unspecified
CPT/HCPCS: 44970; 74176; 80048; 80053; 81001; 83605; 83690; 84703; 85025; 87040; 87086; 88304; 96365; 96375; 99285; G0378; J1100; J1885; J2270; J2405; J2543; J2704; J2710; J3010; J3490; J7030

== ENCOUNTER 2022-03-19 08:04 | Day surgery (SDC) | payer OTHER, SELFPAY ==
[2022-03-17 14:01] VITALS: BMI 24.7
[2022-03-19 08:43] VITALS: BP 108/71; PULSE 88; RESP 16; TEMP 36.4; O2SAT 100
[2022-03-19] MEDS: sodium chloride 0.9% 1,000 ML 30 ML IV (08:51)
--- NOTE | 2022-03-19 09:22 | ANES.PREANE2 ---
Pre-Anesthetic Assessment Height/Weight: Height 1.63 m Weight 65.317 kg Temp Pulse Resp BP Pulse Ox O2 Del Method 97.6 F 88 16 108/71 100 03/19/22 08:43 03/19/22 08:43 03/19/22 08:43 03/19/22 08:43 03/19/22 08:43 03/19/22 08:43 Preop Diagnosis: Change in stool caliber Operation Date: 03/19/22 09:30 Proposed Procedures p Colonoscopy 91152,R19.5(Not Applicable) - Francisco Javier Davis MD Familial anesthetic complications: None Was Beta Chai taken within 24 hours: N/A Was Clonidine taken within 24 hours: N/A Last intake: Intake Last Liquid Date 03/18/22 Last Liquid Time 21:00 Last Solid Date 03/18/22 Last Solid Time 20:00 Social No alcohol and No tobacco Exam alert, oriented x 3, clear to auscultation bilaterally and regular rate & rhythm Airway Mallampati: Class I Dentition: full GI Gastroesophageal Reflux Disease Anesthetic Plan ASA status: 2 Anesthesia: MAC Risk of > 500 ml blood loss (7ml/kg in children): No Medications/Allergies Home Medications Medication Instructions Recorded Confirmed Last Taken Type acetaminophen 325 mg tablet 325 mg PO QID PRN Pain 09/27/20 03/19/22 03/17/22 History (Tylenol) nortriptyline 50 mg capsule 50 mg PO BEDTIME 09/27/20 03/19/22 03/18/22 History omeprazole 20 mg tablet,delayed 20 mg PO DAILY 09/27/20 03/19/22 03/17/22 History release bupropion HCl 150 mg 24 hr tablet, 150 mg PO DAILY 11/10/21 03/19/22 03/17/22 History extended release ibuprofen 200 mg tablet (Advil) 200 mg PO Q6H PRN Pain 11/10/21 03/19/22 03/15/22 History magnesium 30 mg tablet 30 mg PO DAILY 11/10/21 03/19/22 03/18/22 History firwzvdru-ppi-wzzt fumarate 18 1 tab-cap PO DAILY 11/10/21 03/19/22 03/18/22 History mg-FA 600 mcg-vit K 40 mcg capsule (Multi For Her) sumatriptan succinate 50 mg tablet 50 mg PO DAILY PRN Migraine 11/10/21 03/19/22 03/13/22 History Headache hydrocodone 5 mg-acetaminophen 325 1 tab PO Q6H PRN pain #7 tabs 11/13/21 03/19/22 11/14/21 Rx mg tablet bisacodyl 5 mg tablet,delayed 5 mg PO DAILY 12/24/21 03/19/22 03/16/22 History release wheat dextrin 3 gram/3.5 gram oral 1.5 g PO TID 12/24/21 03/19/22 03/17/22 History powder packet (Benefiber Clear Sugar Free(dextrin)) Allergies Allergy/AdvReac Type Severity Reaction Status Date / Time zolpidem [From Ambien] Allergy ADR-Migrain Verified 03/19/22 08:38 e Current Medications Generic Name Dose Route Start Last Admin Trade Name Freq PRN Reason Stop Dose Admin Sodium Chloride 1,000 mls @ 30 mls/hr 03/19/22 08:45 03/19/22 08:51 Sodium Chloride 0.9% IV 30 mls/hr .Q24H JEAN Administration PFSH Anesthesia Medical History Acute appendicitis Surgical History Status post laparoscopic appendectomy Social History Smoking and tobacco status: never smoked Data Anesthesia Cardiac Studies: No Data to Display
--- NOTE | 2022-03-19 09:54 | W.PM.OPSFHP ---
Same Day Surgery H&P Indication for Procedure/HPI DATE OF PROCEDURE: March 19, 2022 CHIEF COMPLAINT/INDICATIONFOR SURGICAL PROCEDURE: Change in stool caliber PREOP DIAGNOSIS: Change in stool caliber PLANNED PROCEDURE: Operation Date: 03/19/22 09:30 Proposed Procedures p Colonoscopy 37505,R19.5(Not Applicable) - Francisco Javier Davis MD 12/24/2021 Patient comes today as a postop visit status post laparoscopic appendectomy 11/11/2021.? Overall doing well and denies any complaints.? Patient reports that she had a previous colonoscopy which was 41 years of age as she does report history of constipation, at that time of the colonoscopy was within normal limits per patient's description if patient does report recently has been having change in caliber. 03/19/2022 Patient comes today for screening colonoscopy ROS All systems have been reviewed negative except as for the above or per problem list. Medications/Allergies* Home Medications Medication Instructions Recorded Confirmed Type acetaminophen 325 mg tablet 325 mg PO QID PRN Pain 09/27/20 03/19/22 History (Tylenol) nortriptyline 50 mg capsule 50 mg PO BEDTIME 09/27/20 03/19/22 History omeprazole 20 mg tablet,delayed 20 mg PO DAILY 09/27/20 03/19/22 History release bupropion HCl 150 mg 24 hr tablet, 150 mg PO DAILY 11/10/21 03/19/22 History extended release ibuprofen 200 mg tablet (Advil) 200 mg PO Q6H PRN Pain 11/10/21 03/19/22 History magnesium 30 mg tablet 30 mg PO DAILY 11/10/21 03/19/22 History nozuqtjef-igr-wgeq fumarate 18 1 tab-cap PO DAILY 11/10/21 03/19/22 History mg-FA 600 mcg-vit K 40 mcg capsule (Multi For Her) sumatriptan succinate 50 mg tablet 50 mg PO DAILY PRN Migraine 11/10/21 03/19/22 History Headache bisacodyl 5 mg tablet,delayed 5 mg PO DAILY 12/24/21 03/19/22 History release wheat dextrin 3 gram/3.5 gram oral 1.5 g PO TID 12/24/21 03/19/22 History powder packet (Benefiber Clear Sugar Free(dextrin)) Allergies/Adverse Reactions Allergy/AdvReac Type Severity Reaction Status Date / Time zolpidem [From Ambien] Allergy ADR-Migrain Verified 03/19/22 09:55 e Current Medications: Generic Name Dose Route Start Last Admin Trade Name Mauryq PRN Reason Stop Dose Admin Sodium Chloride 1,000 mls @ 30 mls/hr 03/19/22 08:45 03/19/22 08:51 Sodium Chloride 0.9% IV 30 mls/hr .Q24H JEAN Administration Pertinent History/Comorbid Conditions* Medical History (Updated 12/25/21 @ 16:50 by Francisco Javier Davis MD) Acute appendicitis Surgical History (Updated 11/21/21 @ 12:20 by Jayson Alas DO) Status post laparoscopic appendectomy Social History Smoking and tobacco status: never smoked Pertinent Exam Findings alert, oriented x 3, regular rate & rhythm and procedure specific exam findings (Abdominal exam nontender nondistended soft) Recommendations Surgery/Procedure today (Colonoscopy with possible biopsy) Coding Level of Care Code Acute Ventilation Equipment Tender for Cl Padilla
[2022-03-19 10:25] VITALS: BP 109/78; PULSE 80; RESP 18; TEMP 36.3; O2SAT 100
--- NOTE | 2022-03-19 10:25 | ANE.PACU2 ---
Inpatient post-anesthesia follow up: Airway intact: Yes Vital signs: Temperature 97.6 F Pulse Rate 88 Respiratory Rate 16 Blood Pressure 108/71 Pulse Oximetry 100 Oxygen Delivery Me thod Room Air Oxygen Flow Rate Fraction of Inspir ed Oxygen Hydration adequate: Yes Nausea and vomiting: No Pain level: 1 Mental status: Baseline
[2022-03-19 10:35] VITALS: BP 117/79; PULSE 82; RESP 18; O2SAT 100
== END 2022-03-19 10:56 | disposition home or self-care (01) ==
PROVIDERS: PCP Internal Medicine Geriatric Medicine; Visit Provider Surgery
PROC: 0DJD8ZZ Inspection of Lower Intestinal Tract, Via Natural or Artificial Opening Endoscopic (ICD-10-PCS; CPT 45378; principal; 2022-03-19 09:30)
DX: Z12.11 Encounter for screening for malignant neoplasm of colon (principal); K21.9 Gastro-esophageal reflux disease without esophagitis
CPT/HCPCS: 45378; J2704; J7030

== ENCOUNTER 2024-09-12 13:21 | Emergency (ER) | payer OTHER, SELFPAY ==
[2024-09-12 13:27] VITALS: BP 125/79; PULSE 81; RESP 16; TEMP 36.7; O2SAT 100; BMI 23.1
--- NOTE | 2024-09-12 13:56 | W.ED.ANIMALB ---
HPI - Animal Bite General: Chief Complaint: Animal Bite Stated Complaint: L hand bite from chipmunk, sent by power garcia Time Seen by Provider: 09/12/24 13:44 Source: patient Mode of arrival: ambulatory Limitations: no limitations History of Present Illness: Patient is a very nice 49-year-old female presents to ED today after she was told by Power Garcia to come to the ED for rabies PEP following a chipmunk bite to the left finger that she sustained just prior to arrival after her cat was attacking the chipmunk and she tried to save it. Power Garcia did place her on antibiotics. Her tetanus is up-to-date. complaint: animal bite Onset (ago): hour(s) Animal: rodent Description of animal: wild animal Mechanism: bite Location - Extremities: Left: hand (finger) Context: animals fighting Associated symptoms: Reports no associated symptoms Treatments prior to arrival: irrigation Related Data Home Medications ?Medication ?Instructions ?Recorded ?Confirmed acetaminophen 325 mg tablet 325 mg PO QID PRN Pain 09/27/20 04/04/22 (Tylenol) nortriptyline 50 mg capsule 50 mg PO BEDTIME 09/27/20 04/04/22 omeprazole 20 mg tablet,delayed 20 mg PO DAILY 09/27/20 04/04/22 release bupropion HCl 150 mg 24 hr tablet, 150 mg PO DAILY 11/10/21 04/04/22 extended release ibuprofen 200 mg tablet (Advil) 200 mg PO Q6H PRN Pain 11/10/21 04/04/22 magnesium 30 mg tablet 30 mg PO DAILY 11/10/21 04/04/22 ghfzhhawo-ngw-clct fumarate 18 1 tab-cap PO DAILY 11/10/21 04/04/22 mg-FA 600 mcg-vit K 40 mcg capsule (Multi For Her) sumatriptan succinate 50 mg tablet 50 mg PO DAILY PRN Migraine 11/10/21 04/04/22 Headache bisacodyl 5 mg tablet,delayed 5 mg PO DAILY 12/24/21 04/04/22 release wheat dextrin 3 gram/3.5 gram oral 1.5 g PO TID 12/24/21 04/04/22 powder packet (Benefiber Clear Sugar Free(dextrin)) Previous Rx's ?Medication ?Instructions ?Recorded hydrocodone 5 mg-acetaminophen 325 1 tab PO Q6H PRN pain #7 tabs 11/13/21 mg tablet Allergies Allergy/AdvReac Type Severity Reaction Status Date / Time zolpidem (From Ambien) Allergy ADR-Migrain Verified 04/04/22 14:47 e Review of Systems Musc: Denies: extremity pain or extremity swelling Skin/Breast: Reports: other (small bite to L finger) Neuro: Denies: numbness in extremities or sensory changes PFSH ED PFSH: Medical History Acute appendicitis Surgical History Status post laparoscopic appendectomy Social History Smoking and tobacco/nicotine status: never used tobacco/nicotine Physical Exam Const: COMMON NORMALS: no acute distress, average body habitus, patient oriented x3, no limitations, healthy appearing, alert and well nourished Extremity: COMMON NORMALS: capillary refill normal GENERAL: Yes normal exam except as noted LEFT UPPER EXTREMITY: Yes hand & digits (small bite distal L finger; no edema, erythema, discharge) Left hand and digits: Yes neurovascular exam (normal) Neuro: COMMON NORMALS: patient oriented x3, moves all extremities, no focal motor deficits and no sensory deficits noted SENSORIUM/ORIENTATION: Yes alert Course Vital Signs: Vital signs: Vital Signs Temperature 98.1 F 09/12/24 13:27 Pulse Rate 81 09/12/24 13:27 Respiratory Rate 16 09/12/24 13:27 Blood Pressure 125/79 09/12/24 13:27 Pulse Oximetry 100 09/12/24 13:27 Oxygen Delivery Me thod Room Air 09/12/24 13:27 MDM - Animal Bite Medical Decision Making Multiple world health organizations do not recommend rabies PEP following low risk rodent bites. She will continue abx and monitor for infection. Tetanus was UTD. Medical Records I reviewed the patient's medical records. No radiology studies performed this visit Discharge Plan Discharge Patient Disposition: Home Clinical Impression: Non-rat rodent bite Condition: Stable Prescriptions: No Action omeprazole 20 mg tablet,delayed release (DR/EC) 20 mg PO DAILY nortriptyline 50 mg capsule 50 mg PO BEDTIME acetaminophen [Tylenol] 325 mg tablet 325 mg PO QID PRN (Reason: Pain) bisacodyl 5 mg tablet,delayed release (DR/EC) 5 mg PO DAILY Benefiber Clear SF (dextrin) 3 gram/3.5 gram powder in packet 1.5 g PO TID Rx Instructions: mix into at least 4 oz water or juice before administering sumatriptan succinate 50 mg tablet 50 mg PO DAILY PRN (Reason: Migraine Headache) ibuprofen [Advil] 200 mg Tablet 200 mg PO Q6H PRN (Reason: Pain) magnesium 30 mg Tablet 30 mg PO DAILY bupropion HCl 150 mg tablet extended release 24 hr 150 mg PO DAILY Multi For Her 18 mg iron-600 mcg-40 mcg Capsule 1 tab-cap PO DAILY hydrocodone-acetaminophen 5-325 mg tablet 1 tab PO Q6H PRN (Reason: pain) Qty: 7 0RF Discharge Orders: Discharge ED (Routine); Ordered 09/12/24 Ordered By: Lindsey Webster Activity Restrictions/Additional Instructions: As we discussed, current guidelines do not recommend rabies post exposure prophylaxis for low risk rodent animal such as rats, mice, squirrels, chipmunks, etc. Print Language: Canadian Coding Level of Care Code ED Awning Hanger Helper for Cl Padilla
== END 2024-09-12 14:10 | disposition home or self-care (01) ==
PROVIDERS: Emergency Provider Physician Assistant
DX: S61.259A Open bite of unspecified finger without damage to nail, initial encounter (principal); W64.XXXA Exposure to other animate mechanical forces, initial encounter
CPT/HCPCS: 99282